=== PATIENT | female | born 1970 | race African-American/Black ===

== ENCOUNTER 2017-08-14 09:51 | Emergency (ER) | payer OTHER ==
[~2017-08-14] VITALS: Ht 185.4 cm; Wt 79.4 kg
[~2017-08-14 09:51] MED LIST: FLAGYL500 MG PO
[2017-08-14 09:53] VITALS: BP 113/71
[2017-08-14 10:08] LABS: URINE BILIRUBIN NEGATIVE (Negative); URINE BLOOD NEGATIVE (Negative); URINE COLOR YELLOW; URINE GLUCOSE-RANDOM* NEGATIVE (Negative); URINE KETONES NEGATIVE (Negative); URINE NITRITE NEGATIVE (Negative); URINE PROTEIN (DIPSTICK) NEGATIVE (Negative)
[2017-08-14] MEDS ORDERED: TYLENOL325 MG PO (10:17)
[2017-08-15 16:08] LABS: CHLAMYDIA TRACHOMATIS-PCR Negative (Negative); NEISSERIA GONORRHEA-PCR Negative (Negative)
== END 2017-08-14 10:48 | disposition home or self-care (01) ==
LOC: ER 09:51
PROVIDERS: Physician Assistant
DX: T19.2XXA Foreign body in vulva and vagina, initial encounter (principal); F10.99 Alcohol use, unspecified with unspecified alcohol-induced disorder; X58.XXXA Exposure to other specified factors, initial encounter; Y93.89 Activity, other specified; Y92.89 Other specified places as the place of occurrence of the external cause; Y99.8 Other external cause status